=== PATIENT | female | born 1990 | race African-American/Black ===

== ENCOUNTER 2018-12-02 08:36 | Emergency (ER) | payer MEDICAID ==
[~2018-12-02] VITALS: Ht 177.8 cm; Wt 70.5 kg
[2018-12-02 10:05] VITALS: BP 111/74
== END 2018-12-02 10:26 | disposition home or self-care (01) ==
LOC: ED 09:06
DX: O99.512 Diseases of the respiratory system complicating pregnancy, second trimester (principal); J45.41 Moderate persistent asthma with (acute) exacerbation; Z3A.20 20 weeks gestation of pregnancy
CPT/HCPCS: 94640; 99284